=== PATIENT | female | born 1965 | race Caucasian/White ===

== ENCOUNTER → 2017-09-17 | Day surgery (SDC) | payer BC ==
[~2017-09-17] MED LIST: ACETAMINOPHEN 1000 MG/100 ML 100 ML IV ONE; ADDERALL 30 MG30 MG PO; AMOXICILLIN PO; CEFAZOLIN SOD 1 GM VIAL ONE; CHLORHEXIDINE GLUCONATE 4% 120 ML BTL ONE; DEXAMETHASONE SOD PHOS INJ 4 MG/ML VIAL ONE; FENTANYL CITRATE/PF 100MCG/2 ML INJ ONE; GLYCOPYRROLATE INJ 1MG/ 5 ML SYR ONE; IBUPROFEN600 MG PO; LIDOCAINE 1% W/EPINEPHRINE 20 ML VIAL ONE; LIDOCAINE HCL 2% LOCAL INJ 5 ML SDV VIAL INJ ONE; MIDAZOLAM HCL 2 MG/2 ML VIAL ONE; NEOSTIGMINE 5 MG/5ML SYR ONE; ONDANSETRON HCL INJ 2 MG/ML VIAL ONE; OXYMETAZOLINE HCL 0.05% NAS 1 SPRAY BTL ONE; PROPOFOL IV EMULSION 10 MG/ML 20 ML VIAL ONE; ROCURONIUM BROMIDE 10 MG/ML 5ML VIAL ONE; SEVOFLURANE INHAL SOLN 250 ML PEN BTL ONE
--- NOTE | 2017-09-17 09:38 | Operative Report ---
DATE OF PROCEDURE: September 17, 2017 PREOPERATIVE DIAGNOSES 1. Forehead laceration (s/p repair) with poor external cosmetic appearance. 2. Nasal fracture. POSTOPERATIVE DIAGNOSES 1. Forehead laceration (s/p repair) with poor external cosmetic appearance. 2. Nasal fracture. PROCEDURES 1. Revision of forehead laceration repair. 2. Closed reduction of nasal fracture with external stabilization. SIGNIFICANT FINDINGS: Deviated nasal dorsum to the right. Poor cosmetic appearance of previous forehead laceration repair. SHIRT MARKER: None. ANESTHESIA: General endotracheal tube anesthesia. ESTIMATED BLOOD LOSS: Less than 1 mL. COMPLICATIONS: None. INDICATIONS: Patient is a 52-year-old female status post nasal trauma on September 12, 2017, consisting of blunt trauma when her dog accidentally hit her nose and face resulting in nasal fracture and right lateral forehead laceration. She had no loss of consciousness at the time of the accident. The epistaxis has since resolved. The right lateral forehead laceration was repaired in the emergency room on September 12, 2017. It has a poor cosmetic appearance due to large external stitches causing a "railroad" appearance. On examination, she has a deviated nasal dorsum to the right. She also has evidence of previous right lateral forehead laceration repair with large external stitches. She is scheduled for closed reduction of nasal fracture with external stabilization, as well as revision of previous right forehead laceration repair. Risks and complications of the procedures were thoroughly discussed with the patient, and they include infection, bleeding, scarring, failure to improve, need for additional operations, persistent poor external cosmetic appearance of the right lateral forehead laceration, as well as the external appearance of the nose, including deviated nasal dorsum, sepal perforation, inability to smell or taste, persistent bleeding, persistent pain, persistent headaches, need for blood transfusion, damage to surrounding nerves, blood vessels and muscles. She fully understands and gives consent. PROCEDURE: The patient was taken to the operating room and placed supine on the operating table where general anesthesia was achieved through orotracheal intubation. Ancef antibiotics were administered intravenously prior to the start of the case in the operating room. Attention was directed to the right lateral forehead laceration. The sutures were removed. The wound was reopened. The skin on the edges of the laceration, which were involved with the large external stitches was excised. The skin edges were then freshened, and were then repaired with interrupted 4-0 Monocryl in a subcuticular fashion followed by application of Dermabond. Following this, attention was then directed to the nose where the external nasal dorsum appeared to be deviated to the right. This was reduced to a midline position with the [place] elevator. A bone cracking sound was heard confirming reduction of the nasal fracture. Following the reduction, the nasal dorsum maintained good anterior and posterior projection, as well as becoming midline. Steri-Strips were then placed over the nose followed by external splint. Patient was awakened in the operating room, extubated and taken to the recovery room in good condition. Job#: [id number] POLA GONZALES
== END | disposition home or self-care (01) ==
LOC: OR 05:35
PROVIDERS: ATTEND Otolaryngology
DX: S02.2XXA Fracture of nasal bones, initial encounter for closed fracture (principal); S01.81XA Laceration without foreign body of other part of head, initial encounter; J34.2 Deviated nasal septum; N20.0 Calculus of kidney; T78.40XA Allergy, unspecified, initial encounter; W54.1XXA Struck by dog, initial encounter; X58.XXXA Exposure to other specified factors, initial encounter
CPT/HCPCS: 12051; 21320; 93005; J0690; J1100; J2001; J2250; J2405